=== PATIENT | female | born 1985 | race Caucasian/White ===

== ENCOUNTER 2017-10-12 01:02 | Emergency (ER) | payer OTHER, MEDICAID ==
[~2017-10-12] VITALS: Ht 167.6 cm; Wt 101.0 kg
[~2017-10-12 01:02] MED LIST: CLEOCIN HCL150 MG PO; LIDOCAINE VISC100 M1 SWISH&SPIT
[2017-10-12] MEDS ORDERED: HYDROCODONE-AP1 EAC6 PO (01:35)
[2017-10-12] MEDS ORDERED: CLINDAMYCIN HC150 MG PO (01:35)
[2017-10-12 01:44] VITALS: BP 137/87
== END 2017-10-12 01:46 | disposition home or self-care (01) ==
LOC: M.ERS 01:02
DX: K08.89 Other specified disorders of teeth and supporting structures (principal); Z88.0 Allergy status to penicillin

== ENCOUNTER 2017-10-15 01:43 | Emergency (ER) | payer OTHER, MEDICAID ==
[~2017-10-15] VITALS: Ht 167.6 cm; Wt 95.3 kg
[~2017-10-15 01:43] MED LIST changes: +CLINDAMYCIN HC150 MG PO; +HYDROCODONE-AP1 EAC6 PO
[2017-10-15] MEDS ORDERED: IBUPROFEN 800800 M1 PO (03:27)
[2017-10-15] MEDS ORDERED: NORCO 5-325 TA1 EACH PO (03:31)
[2017-10-15 03:49] VITALS: BP 130/71
[2017-10-15 06:27] LABS: CALCIUM 9.2 mg/dL (8.5-10.1); CREATININE 0.9 mg/dL (0.6-1.3); POTASSIUM 3.2 mmol/L (3.5-5.1)
[2017-10-15 06:38] LABS: HEMATOCRIT 36.6 % (37.0-47.0); MCH 26.9 pg (26.0-34.0); MCHC 32.6 g/dL (28.0-37.0); MCV 82.4 fL (80.0-100.0); MPV 8.8 fl. (7.2-11.1); RBC 4.44 mil/uL (4.20-5.00); WBC 12.4 thou/uL (4.0-11.0)
== END 2017-10-15 03:51 | disposition home or self-care (01) ==
LOC: M.ERS 01:43
PROVIDERS: Emergency Medicine Emergency Medical Services
DX: K08.89 Other specified disorders of teeth and supporting structures (principal); G89.29 Other chronic pain; F32.9 Major depressive disorder, single episode, unspecified; Z88.0 Allergy status to penicillin

== ENCOUNTER 2018-06-11 19:36 | Emergency (ER) | payer BC, OTHER, MEDICAID ==
[~2018-06-11] VITALS: Ht 167.6 cm; Wt 86.2 kg
[~2018-06-11 19:36] MED LIST changes: +IBUPROFEN 800800 M1 PO; +NORCO 5-325 TA1 EACH PO
[2018-06-11 20:53] LABS: ABSOLUTE BASOPHILS 0.1 thou/uL (0.0-0.2); ABSOLUTE EOSINOPHILS 0.1 thou/uL (0.0-0.7); ABSOLUTE LYMPHOCYTES 2.3 thou/uL (0.8-5.3); ABSOLUTE MONOCYTES 0.7 thou/uL (0.0-1.2); ABSOLUTE NEUTROPHILS 7.8 thou/uL (1.6-8.1); BASOPHILS 0.7 %; EOSINOPHILS 0.8 %; HEMATOCRIT 41.5 % (37.0-47.0); HEMOGLOBIN 13.7 gm/dL (12.0-15.0); LYMPHOCYTES 21.2 %; MCH 26.4 pg (26.0-34.0); MCV 80.2 fL (80.0-100.0); MONOCYTES 6.5 %; MPV 8.1 fl. (7.2-11.1); NUCLEATED RBCS 0 /100WBC; PLATELET COUNT* 336 thou/uL (150-400); POLYS 70.8 %; RBC 5.17 mil/uL (4.20-5.00); RDW-CV 15.4 % (10.5-14.5)
[2018-06-11 20:56] LABS: ANION GAP 7 mmol/L (7-16); BUN 14 mg/dL (7-18); CALCIUM 9.1 mg/dL (8.5-10.1); CHLORIDE 102 mmol/L (98-107); CO2 26 mmol/L (21-32); CREATININE 0.6 mg/dL (0.6-1.3); GLUCOSE 91 mg/dL (70-99); POTASSIUM 3.6 mmol/L (3.5-5.1); SODIUM 135 mmol/L (136-145)
[2018-06-11 21:08] LABS: ALBUMIN 3.8 g/dL (3.4-5.0); ALKALINE PHOSPHATASE 122 U/L (46-116); MAGNESIUM 2.2 mg/dL (1.8-2.4); SGOT 18 U/L (15-37); SGPT 28 U/L (30-65); TOTAL BILIRUBIN 0.3 mg/dL (<0.1-1.0); TROPONIN-I LEVEL <0.06 ng/mL (<0.06)
[2018-06-11] MEDS ORDERED: AMITRIPTYLINE H75 M1 PO (21:55)
[2018-06-11 21:57] LABS: URINE BILIRUBIN NEGATIVE (Negative); URINE BLOOD NEGATIVE (Negative); URINE CLARITY CLEAR; URINE COLOR YELLOW; URINE GLUCOSE-RANDOM NEGATIVE (Negative); URINE KETONES NEGATIVE (Negative); URINE LEUKOCYTES-REFLEX NEGATIVE (Negative); URINE NITRITE-REFLEX NEGATIVE (Negative); URINE PROTEIN NEGATIVE (Negative); URINE SPECIFIC GRAVITY >= 1.030 (1.005-1.030); URINE UROBILINOGEN 0.2 E.U./dl (0.2-1.0)
[2018-06-11 22:05] LABS: AMP/METHAMP POSITIVE (Negative); BARBITURATES Negative (Negative); BENZODIAZEPINES Negative (Negative); COCAINE Negative (Negative); METHADONE Negative (Negative); OPIATES Negative (Negative); PCP Negative (Negative); THC Negative (Negative)
[2018-06-11 22:45] VITALS: BP 120/75
--- NOTE | 2018-06-12 08:59 | EKG ---
[place] [address] ELECTROCARDIOGRAM REPORT Name: JESSIE CONTRERAS Room: [facility]#: [id number] Admission: 06/11/18 Attend Phys: Discharge: 06/11/18 Date of : 85 Report #: [id number] THIS REPORT FOR: //name// [facility] ED Test Date: 2018-06-11 Test Time: 19:48:35 Pat Name: JESSIE CONTRERAS Department: Room: Gender: F Program Eligibility Specialist: Tiera OBRIEN : 1985 Requested By: Linh Mayorga Order Number: [id number] MD: Miguel Hdz Measurements Intervals [place] Rate: 92 P: 57 MI: 135 QRS: 36 QRSD: 85 T: 17 QT: 352 QTc: 436 Interpretive Statements Sinus rhythm Baseline wander in lead(s) V1,V6 No previous ECG available for comparison Electronically Signed On 06-12-2018 8:59:36 [employer] by Miguel dHz [email or web address] <ELECTRONICALLY SIGNED> By: Miguel Hdz MD, [facility] 06/12/18 [id number] Miguel Hdz MD, FACC /EPI
== END 2018-06-11 22:45 | disposition home or self-care (01) ==
LOC: M.ERS 19:36
PROVIDERS: Personal Emergency Response Attendant
DX: F41.9 Anxiety disorder, unspecified (principal); F17.200 Nicotine dependence, unspecified, uncomplicated; G89.29 Other chronic pain; F32.9 Major depressive disorder, single episode, unspecified; G47.00 Insomnia, unspecified; Z98.890 Other specified postprocedural states; Z88.0 Allergy status to penicillin

== ENCOUNTER 2018-06-14 13:11 | Emergency (ER) | payer BC, OTHER, MEDICAID ==
[~2018-06-14] VITALS: Ht 167.6 cm; Wt 86.2 kg
[~2018-06-14 13:11] MED LIST changes: +AMITRIPTYLINE H75 M1 PO
[2018-06-14 14:09] LABS: URINE BILIRUBIN NEGATIVE (Negative); URINE BLOOD NEGATIVE (Negative); URINE CLARITY CLEAR; URINE COLOR YELLOW; URINE GLUCOSE-RANDOM NEGATIVE (Negative); URINE KETONES NEGATIVE (Negative); URINE LEUKOCYTES-REFLEX NEGATIVE (Negative); URINE NITRITE-REFLEX NEGATIVE (Negative); URINE PROTEIN TRACE (Negative); URINE SPECIFIC GRAVITY >= 1.030 (1.005-1.030); URINE UROBILINOGEN 0.2 E.U./dl (0.2-1.0)
[2018-06-14] MEDS ORDERED: CITRATE OF MAG296 M1 PO (14:51)
[2018-06-14 15:01] VITALS: BP 129/79
== END 2018-06-14 15:01 | disposition home or self-care (01) ==
LOC: M.ERS 13:11
PROVIDERS: Nurse Practitioner Family
DX: K59.00 Constipation, unspecified (principal); F32.9 Major depressive disorder, single episode, unspecified; G47.00 Insomnia, unspecified; G89.29 Other chronic pain; F17.200 Nicotine dependence, unspecified, uncomplicated; Z88.0 Allergy status to penicillin

== ENCOUNTER 2018-11-25 11:47 | Emergency (ER) | payer OTHER, MEDICAID ==
[~2018-11-25] VITALS: Ht 167.6 cm; Wt 81.7 kg
[~2018-11-25 11:47] MED LIST changes: +CITRATE OF MAG296 M1 PO
[2018-11-25] MEDS ORDERED: IBUPROFEN 400400 M2 PO (12:05)
[2018-11-25] MEDS ORDERED: NORCO 5-325 TA1 EAC1 PO (13:28)
[2018-11-25] MEDS ORDERED: IBUPROFEN 800800 M1 PO (13:28)
[2018-11-25] MEDS ORDERED: KEFLEX500 M1 PO (13:28)
[2018-11-25 13:57] VITALS: BP 143/72
== END 2018-11-25 13:58 | disposition home or self-care (01) ==
LOC: M.ERS 11:47
DX: L03.211 Cellulitis of face (principal); K08.9 Disorder of teeth and supporting structures, unspecified; F32.9 Major depressive disorder, single episode, unspecified; F17.210 Nicotine dependence, cigarettes, uncomplicated; Z87.442 Personal history of urinary calculi; Z88.0 Allergy status to penicillin; Z98.890 Other specified postprocedural states